=== PATIENT | female | born 1985 | race Caucasian/White ===

== ENCOUNTER 2024-06-08 18:11 | Emergency (ER) | payer MEDICAID ==
[~2024-06-08] VITALS: Ht 160 cm; Wt 64.0 kg
[2024-06-08 18:25] VITALS: BP 125/86; PULSE 62; RESP 16; TEMP 97.9; O2SAT 100
[2024-06-08] MEDS ORDERED: DEXAMETHASONE 10 MG/ML VIAL IM ONE (20:45)
[2024-06-08] MEDS ORDERED: KETOROLAC 15MG/ML VIAL IM ONE (20:45)
[2024-06-08] MEDS ORDERED: METOCLOPRAMIDE HCL 10MG/2ML VIAL IM ONE (20:45)
[2024-06-08] MEDS ORDERED: DEXAMETHASONE 4MG TABLET PO ONE (20:45)
== END 2024-06-09 04:42 | disposition left against medical advice (07) ==
LOC: ER 18:11
DX: R51.9 Headache, unspecified (principal); Z98.890 Other specified postprocedural states
CPT/HCPCS: 99281; J1100; J1885; J2765; Z7610; J8540

== ENCOUNTER 2025-02-10 03:42 | Emergency (ER) | payer MEDICAID ==
[~2025-02-10] VITALS: Ht 160 cm; Wt 64.0 kg
[2025-02-10 03:49] VITALS: O2SAT 100
[2025-02-10 04:42] LABS: BASOPHILS % 0.4 % (0.0-2.0); EOSINOPHILS % 3.7 % (0.0-5.0); HEMATOCRIT. 32.5 % (36.0-48.0); HEMOGLOBIN. 11.1 g/dL (12.0-16.0); LYMPHOCYTES % 34.4 % (20.0-50.0); MEAN CORPUSCULAR HEMOGLOBIN 29.3 pg (28.0-32.0); MEAN CORPUSCULAR HGB CONC 34.2 g/dL (31.0-37.0); MEAN CORPUSCULAR VOLUME 85.5 fL (81.0-99.0); MEAN PLATELET VOLUME 11.3 fl (7.4-10.4); NEUTROPHILS % 54.5 % (40.0-76.0); PLATELET 129 x1000/uL (130-400); RED CELL DISTRIBUTION WIDTH 13.8 % (11.6-14.6); WHITE BLOOD COUNT 4.6 x1000/uL (4.5-11.0)
[2025-02-10 04:51] LABS: PROTHROMBIN TIME 10.8 sec (9.6-11.0)
[2025-02-10 04:53] LABS: CHLORIDE 107 mEq/L (98-107); POTASSIUM 3.7 mEq/L (3.5-5.1); SODIUM 141 mEq/L (136-145)
[2025-02-10 04:54] LABS: CARBON DIOXIDE 27 mEq/L (21-32)
[2025-02-10 04:55] LABS: CALCIUM 9.4 mg/dL (8.7-10.4)
[2025-02-10 04:59] LABS: CREATININE 0.7 mg/dL (0.6-1.0); GLUCOSE 121 mg/dL (70-105); UREA NITROGEN BLOOD 11 mg/dL (9-23)
[2025-02-10 05:00] LABS: ETHANOL BLOOD < 10 mg/dL (<10)
[2025-02-10 05:02] LABS: TROPONIN I HIGH SENSITIVITY < 4 ng/L (3.0-34)
[2025-02-10 05:10] LABS: *AMPHETAMINES SCREEN URINE NEGATIVE (NEGATIVE); *BARBITURATES SCREEN URINE NEGATIVE (NEGATIVE); *BENZODIAZEPINES SCREEN URINE NEGATIVE (NEGATIVE); *COCAINE SCREEN URINE NEGATIVE (NEGATIVE); CANNABINOID URINE SCREEN NEGATIVE (NEGATIVE); CLARITY URINE CLEAR (CLEAR); COLOR URINE YELLOW (YELLOW); ECSTASY MDMA SCREEN URINE NEGATIVE (NEGATIVE); GLUCOSE URINE NEGATIVE (NEGATIVE); KETONES URINE NEGATIVE (NEGATIVE); LEUKOCYTE ESTERASE URINE TRACE (NEGATIVE); METHADONE URINE SCREEN NEGATIVE (NEGATIVE); NITRITE URINE NEGATIVE (NEGATIVE); OCCULT BLOOD URINE 3+ (NEGATIVE); OPIATES URINE SCREEN NEGATIVE (NEGATIVE); PHENCYCLIDINE URINE SCREEN NEGATIVE (NEGATIVE); PROTEIN URINE NEGATIVE (NEGATIVE); UROBILINOGEN URINE 0.2 E.U./dL (0.2-1.0)
[2025-02-10 05:36] LABS: HCG SCREEN NEGATIVE
[2025-02-10] MEDS: KETOROLAC 15MG/ML VIAL IM ONE (05:51)
[2025-02-10 06:14] LABS: SQUAMOUS EPITHELIAL CELL URINE FEW /lpf (RARE/1+)
[2025-02-10 06:15] LABS: WBC URINE 0-2 /hpf (0-2)
[2025-02-10 06:16] LABS: BACTERIA URINE NONE SEEN; RBC URINE 15-25 /hpf (0-2)
[2025-02-10] MEDS ORDERED: NAPR-681 MT (07:05)
[2025-02-10 07:50] VITALS: BP 115/83; PULSE 61; RESP 19; TEMP 37; O2SAT 100
== END 2025-02-10 07:51 | disposition home or self-care (01) ==
LOC: ER 03:53
DX: R07.89 Other chest pain (principal); Z79.1 Long term (current) use of non-steroidal anti-inflammatories (NSAID); Z86.718 Personal history of other venous thrombosis and embolism; Z79.899 Other long term (current) drug therapy
CPT/HCPCS: 80305; 80048; 81003; 81025; 80320; 84703; 83690; 85025; 85610; 84484; 36415; 71045; 93005; 99285; J1885; G0480